=== PATIENT | female | born 1990 | race Caucasian/White ===

== ENCOUNTER 2019-05-03 10:15 | Day surgery (SDC) | payer BC, OTHER ==
[2019-05-02 11:56] VITALS: BMI 23.9
[2019-05-03 13:05] VITALS: TEMP 98
[2019-05-03 13:06] VITALS: BP 112/70; PULSE 67
--- NOTE | 2019-05-06 17:03 | PATH ---
Surgical Pathology Report Patient Name: MARION NARVAEZ [facility]. Rec. #: [id number] /Age/Gender: 1990 (Age: 29) / F Account: [id number] Location: [facility]-ENDOSCOPY Taken: 05/03/2019 Received: 05/03/2019 Reported: 05/06/2019 Physicians: Dmitriy Steen M.D. Specimen(s) Received A: CECUM B: TERMINAL ILEUM C: ASCENDING COLON D: SIGMOID COLON E: RECTUM Clinical History Abdominal pain Postoperative diagnosis: Rule out colitis, hemorrhoids Final Diagnosis A. CECUM, BIOPSY: COLONIC MUCOSA WITH SMALL LYMPHOID AGGREGATES. B. TERMINAL ILEUM, BIOPSY: ILEAL MUCOSA WITH MODERATE ACUTE ILEITIS. SEE COMMENT. C. ASCENDING COLON, BIOPSY: COLONIC MUCOSA WITH PROMINENT LYMPHOID AGGREGATES. D. SIGMOID COLON, BIOPSY: COLONIC MUCOSA WITH PROMINENT LYMPHOID AGGREGATES. E. RECTUM, BIOPSY: COLONIC MUCOSA WITH VASCULAR CONGESTION AND SMALL LYMPHOID AGGREGATE. Comment: Part B, Findings are non-specific. Differential diagnoses include: acute self-limited infection, medication, and early in inflammatory bowel disease. Suggest clinical/endoscopic correlation. Electronically Signed Regla Miller M.D. Gross Description A. Received in formalin, labeled "biopsy cecum" are 2 roberts, irregular portions of soft tissue measuring 0.2 and 0.4 cm. in greatest dimension. The specimens are submitted in toto in one cassette. B. Received in formalin, labeled "biopsy terminal ileum" are 2 roberts, irregular portions of soft tissue measuring 0.3 and 0.5 cm. in greatest dimension. The specimens are submitted in toto in one cassette. C. Received in formalin, labeled "biopsy ascending colon" are 2 roberts, irregular portions of soft tissue measuring 0.2 and 0.4 cm. in greatest dimension. The specimens are submitted in toto in one cassette. D. Received in formalin, labeled "biopsy sigmoid colon" are 2 roberts, irregular portions of soft tissue measuring 0.2 and 0.5 cm. in greatest dimension. The specimens are submitted in toto in one cassette. E. Received in formalin, labeled "biopsy rectum" are 2 roberts, irregular portions of soft tissue measuring 0.3 and 0.7 cm. in greatest dimension. The specimens are submitted in toto in one cassette. DL/05/03/201905/03/2019
== END 2019-05-03 12:24 | disposition home or self-care (01) ==
LOC: JASU-ENDO 10:15
PROVIDERS: ATTEND Internal Medicine Gastroenterology
PROC: 0DBN8ZX Excision of Sigmoid Colon, Via Natural or Artificial Opening Endoscopic, Diagnostic (ICD-10-PCS; 2019-05-03)
PROC: 0DBP8ZX Excision of Rectum, Via Natural or Artificial Opening Endoscopic, Diagnostic (ICD-10-PCS; 2019-05-03)
PROC: 0DBB8ZX Excision of Ileum, Via Natural or Artificial Opening Endoscopic, Diagnostic (ICD-10-PCS; 2019-05-03)
PROC: 0DBH8ZX Excision of Cecum, Via Natural or Artificial Opening Endoscopic, Diagnostic (ICD-10-PCS; 2019-05-03)
PROC: 0DBK8ZX Excision of Ascending Colon, Via Natural or Artificial Opening Endoscopic, Diagnostic (ICD-10-PCS; principal; 2019-05-03 11:00)
DX: R10.32 Left lower quadrant pain (principal); K52.89 Other specified noninfective gastroenteritis and colitis; K63.89 Other specified diseases of intestine; K62.89 Other specified diseases of anus and rectum
CPT/HCPCS: 81025; 88305-TC